=== PATIENT | female | born 1990 | race Caucasian/White ===

== ENCOUNTER → 2019-11-17 | Day surgery (SDC) | payer OTHER ==
[~2019-11-17] MED LIST: FENTANYL CITRATE/PF 100MCG/2 ML INJ ONE; KETAMINE HCL INJ 50 MG/ML 10 ML VIAL ONE; MIDAZOLAM HCL 2 MG/2 ML VIAL ONE; PANTOPRAZOLE 40 MG 10ML VIAL ONE; PROBIOTIC & AC1 EACH; PROPOFOL IV EMULSION 10 MG/ML 50 ML VIAL ONE
--- OUTSIDE RECORDS SUMMARY | 2019-11-17 09:30 | XMS REPORT | Summary of Care ---
Author Author [facility] - Health Organization [facility] - Health Address Unknown Phone Unavailable Care Team Providers Care Human Resources Psychologist Name Role Phone Tete Major MSN PCP Reason for Visit * Reason Comments Other Encounter Details Care Team Description Date Type Department Tete Major, MSN [address] [place] [address] Family planning counseling (Primary Dx); Vaginal discharge; Exposure to STD 10/30/2019 Office Visit [facility] [address] [place] [address] Allergies No Known Allergiesdocumented as of this encounter (statuses as of 10/30/2019) Medications No known medicationsdocumented as of this encounter (statuses as of 10/30/2019) Active Problems No known active problemsdocumented as of this encounter (statuses as of 10/30/2019) Social History Date Tobacco Use Types Packs/Day Years Used Former Smoker Cigarettes 0.5 Smokeless Tobacco: Never Used Drinks/Week oz/Week Comments Alcohol Use 1-2 Cans of beer 1.0 - 2.0 socially Not Currently Sex Assigned at Date Recorded Not on file Industry Job Start Date Occupation Not on file Not on file Not on file Travel End Travel History Travel Start No recent travel history available. documented as of this encounter Last Filed Vital Signs Reading Time Taken Comments Vital Sign 100/60 10/30/2019 2:13 PM [employer] Blood Pressure 73 10/30/2019 2:13 PM [employer] Pulse 36.9 C (98.4 F) 10/30/2019 2:13 PM [employer] Temperature 20 10/30/2019 2:13 PM [employer] Respiratory Rate - - Oxygen Saturation - - Inhaled Oxygen Concentration 55.3 kg (122 lb) 10/30/2019 2:13 PM [employer] Weight 167.6 cm (5' 6") 10/30/2019 2:13 PM [employer] Height 19.69 10/30/2019 2:13 PM [employer] Body Mass Index documented in this encounter Patient Instructions * Patient Instructions* Tete Major, MSN - 10/30/2019 1:45 PM [employer] Preventing Vaginal Infection These steps can help you stay comfortable during treatment of a vaginal infectio n. They also help prevent vaginal infections in the future. Keeping a healthy balance Factors that change the normal balance in the vagina can lead to a vaginal infec tion. To help keep the balance normal, try these tips: Change out of wet bathing suits and damp exercise clothes as soon as possible . Yeast thrive in a warm, moist environment. Avoid wearing tight pants. Choose cotton underwear and pantyhose that have a cotton crotch. Cotton keeps you cooler and short goods drier than synthetics. Don't douche unless directed by your healthcare provider. Douching can destro y friendly bacteria and change the vagina's normal balance. Wipe from front to back after using the toilet. This prevents bacteria from s preading from the anus to the vulva. Wash the vulva with mild, unscented soap or with plain water. Wash your diaphragm, spermicide applicators, and sex toys with mild soap and water after use. Dry them thoroughly before putting them away. Change tampons often (every 2 hoursto 4 hours). Leaving a tampon in for too long may disrupt the balance of vaginal bacteria. Avoid vaginal sprays, scented toilet paper and soaps, and deodorant tampons o r pads, which can cause vaginal irritation Staying healthy overall Good overall health can help you resist infection. To be healthier: Help protect yourself from STIs (sexually transmitted infections) by using la angus condoms for intercourse. Ask your healthcare provider for more information a bout safer sex. Eat a variety of healthy foods. Exercise regularly. Get enough rest and sleep. Maintain a healthy weight. If you need to lose weight, ask your healthcare pr ovider for advice on how to start. [employer] last reviewed this educational content on 05/25/201719998691-0439 [employer]. [address] [place] [address], [place], [place] [address]. All rights reserved. This information is not intended as a substitute for pro fessional medical care. Always follow your healthcare professional's instruction s. 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 The patient's primary symptoms include vaginal discharge. Primary symptoms comment: f/u from BV and PID, dx in ER. This is a ne w problem. The current episode started 1 to 4 weeks ago. The problem occurs eliot y. The problem has been unchanged. The patient is experiencing no pain. She is n ot . She wears cotton underwear. Associated symptoms comments: Genital s welling. The vaginal discharge was white and yellow. Nothing aggravates the symp toms. She has tried antibiotics for the symptoms. The treatment provided mild re lief. It is possible (desires testing) that her partner has an STD. She uses abs tinence for contraception. Her menstrual history has been regular. Patient repor ts not sexually active. Pt denies human trafficking, current or past physical, sexual, or emotional abus e. Histories OB History Para Term AB Living 6 6 SAB TAB Ectopic Multiple Live Births 5 # Outcome Date GA Lbr Eron/2nd Weight Sex Delivery Anes PTL Lv 6 SAB 06/2018 8w0d 5 AB 09/24/07 8w0d 4 SAB 09/24/04 8w0d 3 SAB 2 SAB 1 SAB History reviewed. No pertinent past medical history. Family History Problem Relation Age of Onset No Significant Medical Problems Mother No Significant Medical Problems Father No Significant Medical Problems Sister Family Status Relation Name Status Mo Alive Fa Alive Sis Alive History reviewed. No pertinent surgical history. Social History Socioeconomic History Marital status: Single Spouse name: Not on file Number of children: Not on file Years of education: Not on file Highest education level: Not on file Occupational History Not on file Social Needs Financial resource strain: Not on file Food insecurity: Worry: Not on file Inability: Not on file Transportation needs: Medical: Not on file Non-medical: Not on file Tobacco Use Smoking status: Former Smoker Packs/day: 0.50 Types: Cigarettes Smokeless tobacco: Never Used Substance and Sexual Activity Alcohol use: Not Currently Alcohol/week: 1.0 - 2.0 standard drinks Types: 1 - 2 Cans of beer per week Comment: socially Drug use: Yes Frequency: 7.0 times per week Types: Marijuana Sexual activity: Not Currently Partners: Male control/protection: None Lifestyle Physical activity: Days per week: Not on file Minutes per session: Not on file Stress: Not on file Relationships Social connections: Talks on phone: Not on file Gets together: Not on file Attends alevism service: Not on file Active member of club or organization: Not on file Attends meetings of clubs or organizations: Not on file Relationship status: Not on file Intimate partner violence: Fear of current or ex partner: Not on file Emotionally abused: Not on file Physically abused: Not on file Forced sexual activity: Not on file Other Topics Concern Not on file Social History Narrative Denies physical, mental or sexual abuse. Social History Substance and Sexual Activity Sexual Activity Not Currently Partners: Male control/protection: None Labs Admission on 09/06/2019, Discharged on 09/06/2019 Component Date Value APPEARANCE 09/06/2019 Clear COLOR 09/06/2019 Straw* PH 09/06/2019 7.0 SP GRAVITY 09/06/2019 1.003 GLU U QUAL 09/06/2019 Normal BLOOD 09/06/2019 Negative KETONES 09/06/2019 Negative PROTEIN 09/06/2019 Negative UROBILIN 09/06/2019 Normal BILIRUBIN 09/06/2019 Negative NITRITE 09/06/2019 Negative LEUK EARNEST 09/06/2019 Negative RBC/HPF 09/06/2019 2 WBC/HPF 09/06/2019 1 BACTERIA 09/06/2019 Negative SQ EPITH 09/06/2019 4* POCT PREG 09/06/2019 NEGATIVE On board controls accept* 09/06/2019 PRESENT POCT PREG LOT # 09/06/2019 [id number] POCT PREG TEST DA* 09/06/201920192020-09-23 NA 09/06/2019 141 K 09/06/2019 3.6 CL 09/06/2019 99 CO2 TOTAL 09/06/2019 30 AGAP 09/06/2019 12 BUN 09/06/2019 5* GLUCOSE 09/06/2019 92 CREATININE 09/06/2019 0.77 CALCIUM 09/06/2019 9.5 eGFR Calculation (Non-Af* 09/06/2019 88.6 eGFR Calculation (Luci* 09/06/2019 107.4 TOTAL BILI 09/06/2019 0.3 BILI UNCON 09/06/2019 0.1 BILI CONJ 09/06/2019 0.0 T PROTEIN 09/06/2019 8.2 ALBUMIN 09/06/2019 5.1* ALK PHOS 09/06/2019 32* ALTv 09/06/2019 34 AST(SGOT) 09/06/2019 35 LIPASE 09/06/2019 52 WBC 09/06/2019 3.44* RBC 09/06/2019 4.61 HGB 09/06/2019 14.7 HCT 09/06/2019 44.6 MCV 09/06/2019 96.7* MCH 09/06/2019 31.9 MCHC 09/06/2019 33.0 RDW-SD 09/06/2019 46.6 RDW-CV 09/06/2019 13.0 PLT 09/06/2019 222 MPV 09/06/2019 10.1 NRBC/100 WBC 09/06/2019 0.0 NRBC x10^3 09/06/2019 <0.01 GRAN MAT (NEUT) % 09/06/2019 56.6 IMM GRAN % 09/06/2019 0.30 LYMPH % 09/06/2019 25.6 MONO % 09/06/2019 16.9 EOS % 09/06/2019 0.3 BASO % 09/06/2019 0.3 GRAN MAT x10^3(ANC) 09/06/2019 1.95 IMM GRAN x10^3 09/06/2019 <0.03 LYMPH x10^3 09/06/2019 0.88* MONO x10^3 09/06/2019 0.58 EOS x10^3 09/06/2019 <0.03* BASO x10^3 09/06/2019 <0.03 BANDS 09/06/2019 Increased* Office Visit on 05/21/2019 Component Date Value C. trachomatis Nucleic A* 05/21/2019 Negative N. gonorrhoeae Nucleic A* 05/21/2019 Negative Case Report 05/21/2019 Value:Gynecologic Cytology Case: [id number] Authorizing Provider: Tete Major MSN Collected: [id number] Ordering Location: [facility] Received: 9 1808 First Screen: Aleah Esquivel Specimen: Liquid Based Pap Preparation, CERVIX Clinical Information 05/21/2019 Value:no hx of abnormal pap Specimen Adequacy 05/21/2019 Satisfactory for Evaluation(Endocervical/Trans formation Zone Component Present) Interpretation 05/21/2019 Negative for intraepithelial lesion or malignancy LMP 05/21/2019 LMP (specify date in Comments) Educational Note 05/21/2019 Value:This result contains rich text formatting which cannot be displayed here. Admission on 03/24/2019, Discharged on 03/24/2019 Component Date Value PREG SERUM 03/24/2019 Negative NA 03/24/2019 138 K 03/24/2019 4.2 CL 03/24/2019 101 CO2 TOTAL 03/24/2019 26 AGAP 03/24/2019 11 BUN 03/24/2019 13 GLUCOSE 03/24/2019 109 CREATININE 03/24/2019 0.73 CALCIUM 03/24/2019 10.4 eGFR Calculation (Non-Af* 03/24/2019 94.3 eGFR Calculation (Luci* 03/24/2019 114.2 APPEARANCE 03/24/2019 Clear COLOR 03/24/2019 Straw* PH 03/24/2019 6.0 SP GRAVITY 03/24/2019 1.005 GLU U QUAL 03/24/2019 Normal BLOOD 03/24/2019 Negative KETONES 03/24/2019 5 mg/dL* PROTEIN 03/24/2019 Negative UROBILIN 03/24/2019 Normal BILIRUBIN 03/24/2019 Negative NITRITE 03/24/2019 Negative LEUK EARNEST 03/24/2019 Negative RBC/HPF 03/24/2019 1 WBC/HPF 03/24/2019 1 BACTERIA 03/24/2019 Few* SQ EPITH 03/24/2019 1 WBC 03/24/2019 9.73 RBC 03/24/2019 4.75 HGB 03/24/2019 15.4* HCT 03/24/2019 46.2* MCV 03/24/2019 97.3* MCH 03/24/2019 32.4 MCHC 03/24/2019 33.3 RDW-SD 03/24/2019 45.9 RDW-CV 03/24/2019 12.7 PLT 03/24/2019 291 MPV 03/24/2019 9.2* NRBC/100 WBC 03/24/2019 0.0 NRBC x10^3 03/24/2019 <0.01 GRAN MAT (NEUT) % 03/24/2019 74.7 IMM GRAN % 03/24/2019 0.40 LYMPH % 03/24/2019 19.2 MONO % 03/24/2019 5.2 EOS % 03/24/2019 0.2 BASO % 03/24/2019 0.3 GRAN MAT x10^3(ANC) 03/24/2019 7.26* IMM GRAN x10^3 03/24/2019 0.04 LYMPH x10^3 03/24/2019 1.87 MONO x10^3 03/24/2019 0.51 EOS x10^3 03/24/2019 <0.03* BASO x10^3 03/24/2019 0.03 Radiology No new radiology. Allergies Hemalatha has No Known Allergies. Medications Hemalatha currently has no medications in their medication list. Review of Systems Constitutional: Negative. HENT: Negative. Eyes: Negative. Respiratory: Negative. Breasts: Negative. Cardiovascular: Negative. Gastrointestinal: Negative. Genitourinary: Positive for vaginal discharge. Musculoskeletal: Negative. Skin: Negative. Neurological: Negative. Psychiatric/Behavioral: Negative. Endocrine: Endocrine negative BP 100/60 | Pulse 73 | Temp 36.9 C (98.4 F) | Resp 20 | Ht 5' 6" (1.676 m) | Wt 122 lb (55.3 kg) | LMP 10/05/2019 | BMI 19.69 kg/m Pregravid BMI: Could not be calculated Physical Exam Vitals reviewed. Constitutional: She is oriented to person, place, and time. She appears well-dev eloped and well-nourished. Abdominal: Abdomen is soft. No mass palpated. No tenderness present. There is no rigidity and no guarding. Neuro/Psychiatric: She has a normal mood and affect. She is oriented to person, place, and time. Skin: Skin normal. No lesion, no rash and no ulceration present. External genitalia: Normal external genitalia appropriate for age. Normal hair d istribution. No labial lesion. Vagina:Vaginal discharge found. Scant amount of white discharge noted. Culture obtained Cervix: Normal cervix. No lesion. No tenderness and no discharge present. Assessment/Plan Family planning counseling (primary encounter diagnosis) Comment: Abstaining Plan: RTC if BCM desired Vaginal discharge Comment: Reports sx Plan: [facility] ONLY - VAGINAL PATHOGENS BY DNA PROBE Exposure to STD Comment: Desires Plan: GC & CHLAMYDIA AMPLIFIED ASSAY, [facility] ONLY - SYPHILIS IGG/IGM, HIV 1/2 AG-AB WITH REFLEX Zika travel precautions and need for mosquito repellant discussed Discussed treatment options. Reviewed patient instructions and provided printed copy. This visit did not involve counseling and coordination that comprised more than 50% of the visit time. 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 Comp leted 2 courses of RX. Still has yellow and white discharge, no odor. Not sexua lly active. STRIAL COMMERCIAL GROUNDSKEEPER documented in this encounter Plan of Treatment Date/Time Name Type Priority Associated Diagnoses 10/30/2019 3:04 PM IND[employer]RIAL COMMERCIAL GROUNDSKEEPER [facility] ONLY - VAGINAL LAB Routine Vaginal discharge PATHOGENS BY DNA PROBE 10/30/2019 3:04 PM INDUSTRIAL COMMERCIAL GROUNDSKEEPER GC & CHLAMYDIA AMPLIFIED LAB Routine Exposure to STD ASSAY 10/30/2019 3:04 PM IND[employer]RIAL [employer]ERCIAL GROUNDSKEEPER [facility] ONLY - SYPHILIS LAB Routine Exposure to STD IGG/IGM 10/30/2019 3:04 PM IND[employer]AL COMMERCIAL GROUNDSKEEPER HIV 1/2 AG-AB WITH REFLEX LAB Routine Exposure to STD Order Schedule Name Type Priority Associated Diagnoses Expected: 10/30/2019, Expires: 10/30/2020 GC & CHLAMYDIA AMPLIFIED LAB Routine Exposure to STD ASSAY Expected: 10/30/2019, Expires: 10/30/2020 HIV 1/2 AG-AB WITH REFLEX LAB Routine Exposure to STD Health Maintenance Due Date Last Done Comments INFLUENZA VACCINE (#1) 2019 VARICELLA VACCINES (1 of 05/21/2020 Postponed from 1991 2 - 2-dose childhood (Insurance / Financial) series) DTaP,Tdap,and Td Vaccines 05/28/2020 Postponed from 2001 (1 - Tdap) (Refused) PAP SMEAR 05/21/2022 05/21/2019 PNEUMOCOCCAL 0-64 YEARS Aged Out No longer eligible based COMBINED SERIES on patient's age to complete this topic documented as of this encounter Results Not on filedocumented in this encounter Visit Diagnoses Diagnosis Family planning counseling - Primary Other general counseling and advice for contraceptive management Vaginal discharge Leukorrhea, not specified as infective Exposure to STD Contact with or exposure to venereal diseases documented in this encounter Insurance Type Payer Benefit Subscriber ID Effective Phone Address Plan / Dates Group Medicaid [employer] [place] [employer] [facility] xxxxxxxxx 2019-P [phone] [id number] [place] [address] Guarantor Name Account Relation to Date of Phone Billing Address Type Patient Hemalatha Garcia [facility] Self 1990 [address] (Home) [place] [address] documented as of this encounter
--- OUTSIDE RECORDS SUMMARY | 2019-11-17 09:30 | XMS REPORT | Summary of Care ---
Author Author [facility] - Health Organization [facility] - Health Address Unknown Phone Unavailable Care Team Providers Care Time Clock Repairer Name Role Phone Tete Major MSN PCP Encounter Details Care Team Description Date Type Department Doctor Unassigned, [place] [address] [place] [address] 10/30/2019 Orders Only [facility] [address] [place] [address] Allergies No Known Allergiesdocumented as of this [...] of this encounter Last Filed Vital Signs Not on filedocumented in this encounter Plan of Treatment Health Maintenance Due Date Last Done Comments [...] this topic documented as of this encounter Procedures Comments Procedure Name Priority Date/Time Associated Diagnosis [id number] CONSENT Routine 10/30/2019 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
--- OUTSIDE RECORDS SUMMARY | 2019-11-17 09:30 | XMS REPORT | Summary of Care ---
Author Author [facility] - Health Organization [facility] - Health Address Unknown Phone Unavailable Care Team Providers Care Construction Crew Member Name Role Phone Sabrina Arauz PCP Reason for Visit * Reason Comments ANNUAL EXAM Encounter Details Care Team Description Date Type Department Tete Major, MSN [address] [place] [address] Family planning counseling (Primary Dx); Well woman exam with routine gynecological exam; Screening examination for venereal disease; Abdominal pain, generalized; Dysmenorrhea; Menorrhagia with regular cycle 05/21/2019 Office Visit [facility] [address] [place] [address] Allergies No Known Allergiesdocumented as of this encounter (statuses as of 05/28/2019) Medications End Date Status Medication Sig Dispensed Refills Start Date 05/21/2019 Discontinued ketorolac 10 mg tablet Take 1 tablet 20 tablet 0 by mouth 7 every 6 (six) hours as needed for Pain (scale 4-6) or Pain (scale 7-10). 05/21/2019 Discontinued traMADOL 50 mg tablet Take 1 tablet 15 tablet 0 by mouth 7 every 6 (six) hours as needed for Pain (scale 7-10). 05/21/2019 Discontinued ondansetron 8 mg Take 1 tablet 15 tablet 0 tabletIndications: Nausea by mouth 9 every 8 (eight) hours as needed for Nausea and Vomiting (N/V). documented as of this encounter (statuses as of 05/28/2019) Active Problems No known active problemsdocumented as of this encounter (statuses as of 05/28/2019) Social History Date Tobacco Use Types Packs/Day Years Used Former Smoker Cigarettes 0.5 Smokeless Tobacco: Never Used Tobacco Cessation: Counseling Given: Yes Drinks/Week oz/Week Comments Alcohol Use 1-2 Cans of beer 0.6 - 1.2 socially Not Currently Sex Assigned at Date Recorded Not on file Industry Job Start Date Occupation Not on file Not on file Not on file Travel End Travel History Travel Start No recent travel history available. documented as of this encounter Last Filed Vital Signs Reading Time Taken Comments Vital Sign 119/79 05/21/2019 2:50 PM CDT Blood Pressure 84 05/21/2019 2:50 PM CDT Pulse 36.8 C (98.2 F) 05/21/2019 2:50 PM CDT Temperature 18 05/21/2019 2:50 PM CDT Respiratory Rate - - Oxygen Saturation - - Inhaled Oxygen Concentration 55.3 kg (122 lb) 05/21/2019 2:50 PM CDT Weight 167.6 cm (5' 6") 05/21/2019 2:50 PM CDT Height 19.69 05/21/2019 2:50 PM CDT Body Mass Index documented in this encounter Patient Instructions * Patient Instructions* Haleigh Torres, FLORA - 05/21/2019 2:00 PM CDT Clinical Breast Exam Many health organizations recommend a yearly clinical breast exam. This exam may be done by a general inspector, family healthcare provider, nurse practitioner, nurse c wpf developer, or specially trained nurse. Yearly breast exams help tomake suret hat breast conditions are found early. Your healthcare providers role A healthcare professional knows the tests and follow-up care needed if a problem is found. Your clinical exam is also a great time to ask questions about breast self-exams. You can find out if youre checking your breasts in the best way. Or you may want to ask how , breast implants, or breast reduction surg viri affect the way you should check your breasts. Diagnostic tests If a clinical exam reveals a breast change, you may have other tests to find out more. These tests may include: Mammography. A low-dose X-ray of your breast tissue. Ultrasound. An imaging test that uses sound waves to create images of your br east. Biopsy. A small amount of breast tissue is removed by needle or by a cut (inc ision). The tissue is then checked under a microscope. Guidelines for having clinical breast exams The [place] [employer] recommends that starting at age 29, you should have a clinical breast exam every 1 to 3 years. After age 40, have a clinical breast exam each year. If youre at higher risk for breast cancer, you may need exams more often. Risk factors for breast cancer may incl ude: Being over 50 or postmenopausal Having a family history of breast cancer Having the BRCA1 or BRCA2 gene mutation or certain other gene mutations Having more menstrual periods due to starting menstruation early(before age 12) or having a late menopause (after age 55) Having no pregnancies Having a first after age 30 Being obese Having a history of radiation treatment to your chest area Exposure to JESSI during your mother's Not being active Drinking too much alcohol Having dense breast tissue Taking hormone therapy after menopause Other health organizations have different recommendations. Talk with your health care provider about what is best for you. Date Last Reviewed: 04/24/201719998541-3423 [employer] [place] [address] 7. All rights reserved. This information is not intended as a substitute for pro fessional medical care. Always follow your healthcare professional's instruction s. Breast Health: Breast Self-Awareness What is breast self-awareness? Breast self-awareness is knowing how your breasts normally look and feel. Your b reasts change as you go through different stages of your life. So its importa nt to learn what is normal for your breasts. Breast self-awareness helps you not ice any changes in your breasts right away. Report any changes to your healthcar e provider. Why is breast self-awareness important? Many experts now say that women should focus on breast self-awareness instead of doing a breast self-examination (BSE). These experts include the [place] [employer], the U.S. Preventive Services Task Force, and the [place] [employer]. Some experts even advise not teaching women to do a BSE. Thats because research hasnt shown a clear benefit to doing BSE s. Breast self-awareness is different than a BSE. Breast self-awareness isnt abo ut following a certain method and schedule. Its about knowing what's normal f or your breasts. That way you can notice even small changes right away. If you s ee any changes, report them to your healthcare provider. Changes to look for Call your healthcare provider if you find any changes in your breasts that neeta rn you. These changes may include: A lump Nipple discharge other than breastmilk, especially a bloody discharge Swelling A change in size or shape Skin irritation, such as redness, thickening, or dimpling of the skin Swollen lymph nodes in the armpit Nipple problems, such as pain or redness If you find a lump Contact your provider if you find lumpiness in one breast, feel something differ ent in the tissue, or feel a definite lump. Sometimes lumpiness may be due to me nstrual changes. But there may be reason for concern. Your provider may want to see you right away if you have: Nipple discharge that is bloody Skin changes on your breast, such as dimpling or puckering Its normal to be upset if you find a lump. But its important to contact yo ur provider right away. Remember that most breast lumps are benign. This means t hey are not cancer. Date Last Reviewed: 04/24/201719993296-0459 [employer]. [address] [place] [address] 7. All rights reserved. This information is not intended as a substitute for pro fessional medical care. Always follow your healthcare professional's instruction s. 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 Primary symptoms comment: abdominal pain. This is a recurrent problem. The current episode started more than 1 month ago. The problem occurs daily. The problem has been gradually worsening. The pain is severe. The problem affects both sides. She is not . She wears cotton un derwear. Associated symptoms include abdominal pain and cramps. She has tried an tibiotics for the symptoms. No, her partner does not have an STD. Her menstrual history has been regular. Her past medical history is significant for menorrhagi a. (Dysmenorrhea) Patient reports sexually active. Has been seen at multiple ERs. States she believes she might be even t carlos a all her test have been negative. States she's "afraid something is really wrong with me". Pt denies human trafficking, current or past [...] Sexual Activity Alcohol use: Not Currently Alcohol/week: 0.6 - 1.2 oz Types: 1 - 2 Cans of beer per week Comment: socially Drug use: Yes Frequency: 7.0 times per week Types: Marijuana Sexual activity: Not Currently Partners: Male control/protection: None Lifestyle Physical activity: Days per week: Not on file Minutes per session: Not on file Stress: Not on file Relationships Social connections: Talks on phone: Not on file Gets together: Not on file Attends yazidism service: Not on file Active member of [...] Partners: Male control/protection: None Labs Admission on 03/24/2019, Discharged on 03/24/2019 Component [...] Respiratory: Negative. Breasts: Negative. Cardiovascular: Negative. Gastrointestinal: Positive for abdominal pain. Genitourinary: Positive for menorrhagia. Musculoskeletal: Negative. Skin: Negative. Neurological: Negative. Psychiatric/Behavioral: Negative. Endocrine: Endocrine negative BP 119/79 | Pulse 84 | Temp 36.8 C (98.2 F) (Oral) | Resp 18 | Ht 5' 6" (1.676 m) | Wt 122 lb (55.3 kg) | LMP (LMP Unknown) | BMI 19.69 kg/m Pregravid BMI: Could [...] lesion, no rash and no ulceration present. Assessment/Plan Family planning counseling (primary encounter diagnosis) Comment: Declined BCM Plan: RTC if BCM desired Well woman exam with routine gynecological exam Comment: WWE Plan: PAP Smear-Liquid Based, GC & CHLAMYDIA AMPLIFIED ASSAY, LAB ONLY PAP SMEAR-LIQUID BASED, CANCELED: HIV 1/2 AG-AB WITH REFLEX, CANCELED: GALV ONLY - SYPHILIS IGG/IGM, CANCELED: CBC WITH DIFF, CANCELED: RUBELLA SCREEN IGG, CANCELED: GLYCOSYLATED HEMOGLOBIN (A1C), CANCELED: CBC WITH DIFFERENTIAL RTC in 1 yr and PRN Screening examination for venereal disease Comment: Declined any lab work Plan: GC & CHLAMYDIA AMPLIFIED ASSAY, CANCELED: HIV 1/2 AG-AB WITH REFLEX, CANCELED: GALV ONLY - SYPHILIS IGG/IGM Abdominal pain, generalized Comment: Reports sx Plan: Tylenol 1-2 tabs by mouth ever 4 hours when necessary. F/U with PCP or GI . Dysmenorrhea Comment: See hx Plan: Ibuprofen 600 mg po q 6 hrs prn pain Menorrhagia with regular cycle Comment: See hx Plan: Ibuprofen 600 mg po q 6 hrs prn pain Discussed treatment options. Medications as ordered. Reviewed patient instructions and provided printed copy. This visit did not involve counseling and coordination that comprised more than 50% of the visit time. Tete Major, RNC, WHNP * Haleigh Torres LVN - 05/21/2019 2:00 PM CDT Patient states that she is in clinic for a WWE. Reports last pap 2 + years and was negative Reports that she is feeling pain and pressure in the vaginal area. Reports that she is feeling things move in her stomach. Patient states " I belie ve I am . " States this has been going on for 3 months and states that she only spots every month. Reports that she recently took Flagyl until yesterday. Reports burning after urination. Reports that she is feeling something beating in LL abdomen and UP abdomen. Reports vomiting somedays Reports that she was given doxycycline but gave her horrible stomach pain and wa s afraid that she was going to loose her children so she stopped it. C DT documented in this encounter Plan of Treatment Date/Time Name Type Priority Associated Diagnoses 05/21/2019 4:09 PM CDT LAB ONLY PAP SMEAR-LIQUID LAB Routine Well woman exam with BASED routine gynecological exam Health Maintenance Due Date Last Done Comments PAP SMEAR 2011 INFLUENZA VACCINE (#1) 2019 Postponed from 05/25/2019 (Parent Refused) VARICELLA VACCINES (1 of 05/21/2020 Postponed from 2003 2 - 13+ 2-dose series) (Insurance / Financial) DTaP,Tdap,and Td Vaccines 05/28/2020 Postponed from 2009 (1 - Tdap) (Patient Refused) PNEUMOCOCCAL 0-64 YEARS Aged Out No longer eligible based COMBINED SERIES on patient's age to complete this topic documented as of this encounter Procedures Comments Procedure Name Priority Date/Time Associated Diagnosis PAP SMEAR-LIQUID BASED-CP Routine 05/21/2019 Well woman exam with 4:09 PM CDT routine gynecological exam GC & CHLAMYDIA AMPLIFIED Routine 05/21/2019 Screening examination for ASSAY 4:09 PM CDT venereal disease Well woman exam with routine gynecological exam documented in this encounter Results * GC & CHLAMYDIA AMPLIFIED ASSAY (05/21/2019 4:09 PM CDT) C. trachomatis NEGATIVE Negative [facility] [employer] N. gonorrhoeae NEGATIVE Negative [facility] [employer] Specimen Swab - CERVIX Performing Organization Address City/[facility]/Zipcode Phone Number [facility] CLIA: [id number], [address] [place], [place] [id number] [employer] [facility] * PAP Smear-Liquid Based (05/21/2019 4:09 PM CDT) Specimen Swab - CERVIX Performing Organization Address City/[facility] CLIA: [id number], [address] [place], [place] [id number] [facility] documented in this encounter Visit Diagnoses Diagnosis Family planning counseling - Primary Other general counseling and advice for contraceptive management Well woman exam with routine gynecological exam Routine gynecological examination Screening examination for venereal disease Abdominal pain, generalized Dysmenorrhea Menorrhagia with regular cycle Excessive or frequent menstruation documented in this encounter Insurance Type Payer Benefit Subscriber ID Effective Phone Address Plan / Dates Group Medicaid [facility] [place] [facility] xxxxxxxxx 2019-P [phone] [id number] [place] [address] documented as of this encounter
--- OUTSIDE RECORDS SUMMARY | 2019-11-17 09:30 | XMS REPORT | Summary of Care ---
Author Author [facility] - Health Organization [facility] - Health Address Unknown Phone Unavailable Care Team Providers Care Band Tacker Name Role Phone Pcp, Patient Does Not Have A PCP Reason for Visit * Reason Comments Assessment Encounter Details Care Team Description Date Type Department Sabrina Arauz [address] [place] [address] [address] Assessment 05/01/2019 Telephone [facility] [place] [id number] [place] [address] Allergies No Known Allergiesdocumented as of this encounter (statuses as of 05/01/2019) Medications End Date Status Medication Sig Dispensed Refills Start Date Active ketorolac 10 mg tablet Take 1 tablet 20 tablet 0 by mouth 7 every 6 (six) hours as needed for Pain (scale 4-6) or Pain (scale 7-10). Active traMADOL 50 mg tablet Take 1 tablet 15 tablet 0 by mouth 7 every 6 (six) hours as needed for Pain (scale 7-10). Active ondansetron 8 mg Take 1 tablet 15 tablet 0 tabletIndications: Nausea by mouth 9 every 8 (eight) hours as needed for Nausea and Vomiting (N/V). documented as of this encounter (statuses as of 05/01/2019) Active Problems No known active problemsdocumented as of this encounter (statuses as of 05/01/2019) Social History Date Tobacco Use Types Packs/Day Years Used Never Assessed Sex Assigned at Date Recorded Not on file Industry Job Start Date Occupation Not on file Not on file Not on file Travel End Travel History Travel Start No recent travel history available. documented as of this encounter Last Filed Vital Signs Not on filedocumented in this encounter Plan of Treatment Health Maintenance Due Date Last Done Comments VARICELLA VACCINES (1 of 2003 2 - 13+ 2-dose series) DTaP,Tdap,and Td Vaccines 2009 (1 - Tdap) PAP SMEAR 2011 INFLUENZA VACCINE 05/25/2019 PNEUMOCOCCAL 0-64 YEARS Aged Out No longer eligible based COMBINED SERIES on patient's age to complete this topic documented as of this encounter Results Not on filedocumented in this encounter Insurance Type Payer Benefit Subscriber ID Effective Phone Address Plan / Dates Group Medicaid [facility] [place] [facility] xxxxxxxxx 2019-P [phone] [id number] [place] [address] documented as of this encounter
--- OUTSIDE RECORDS SUMMARY | 2019-11-17 09:30 | XMS REPORT | Summary of Care ---
Author Author [facility] - Health Organization [facility] - Health Address Unknown Phone Unavailable Care Team Providers Care Telephone Assembler Name Role Phone Sabrina Arauz PCP Reason for Visit * Reason Comments Assessment Appointment Encounter Details Care Team Description Date Type Department Tete Major, MSN [address] [place] [address] Assessment; Appointment 05/29/2019 Telephone [facility] [address] [place] [address] Allergies No Known Allergiesdocumented as of this encounter (statuses as of 05/30/2019) Medications No known medicationsdocumented as of this encounter (statuses as of 05/30/2019) Active Problems No known active problemsdocumented as of this encounter (statuses as of 05/30/2019) Social History Date Tobacco Use Types Packs/Day [...] filedocumented in this encounter Plan of Treatment Care Team Description Date Type Specialty [facility] [address] [place] [address] 06/02/2019 Office Visit [facility] Health Maintenance Due Date Last Done Comments PAP SMEAR 2011 INFLUENZA VACCINE (#1) 2019 VARICELLA VACCINES (1 [...] / Dates Group Medicaid [employer] [place] [id number] xxxxxxxxx 2019-P [phone] [id number] [place] [address] documented as of this encounter
--- OUTSIDE RECORDS SUMMARY | 2019-11-17 09:30 | XMS REPORT ---
Author Author [facility] Address Unknown Phone Unavailable Care Team Providers Care Neck Band Operator Name Role Phone Unavailable Unavailable Payers Payer Name Policy Type Policy Number Effective Date Expiration Date Problems This patient has no known problems. Allergies, Adverse Reactions, Alerts Allergy Name Allergy Type Status Severity Reaction(s) Onset Date Inactive Date Treating Clinician Comments No Known Allergies DA Active U 2019-10-04 00:00:00 No Known Allergies DA Active U 2019-09-15 00:00:00 No Known Allergies DA Active U 2018-07-21 00:00:00 No Known Allergies DA Active U 2014-09-29 00:00:00 Medications This patient has no known medications. 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 INDICATION: Lower abdominal pain. History of bacterial vaginosis. Reported negative test. COMPARISON: Pelvic ultrasound from earlier today and abdomen CT from 03/25/2019. TECHNIQUE: Helical imaging was performed diaphragm through the symphysis with axial and coronal reformations obtained. CT imaging performed at this location utilizes radiation dose optimization techniques which include one or more of the following: -Automated exposure control -Adjustment of the mA and/or kV according to patient size -Use of iterative reconstruction technique IV CONTRAST: 100 mL Isovue-300. GI CONTRAST: 500 mL of Omnipaque 240. WWY=973.12 mGy-cm FINDINGS: LOWER CHEST: The lung bases are clear. SOLID ORGANS: Homogeneous liver density with indeterminate 7 x 6 mm hypodensity in the right liver lobe involving liver segment 8 (series 2, image 30. This is versus 9 x 11 mm in the previous study. No cirrhosis or enhancing lesion. Patent splenoportal circulation. The gallbladder, spleen, pancreas, adrenal glands and kidneys are unremarkable. BOWEL: Nonobstructive bowel gas pattern without pneumatosis or portal venous air. No signs of diverticulitis. Nonopacified, noninflamed appendix. Normal caliber small bowel. PERITONEUM: Trace free pelvic fluid, reactive or physiologic. No pneumoperitoneum. No adenopathy or peritoneal implants. RETROPERITONEUM: No adenopathy. The aorta is unremarkable. PELVIS: No pelvic adenopathy or mass. Enhancing 14 mm right ovarian corpus luteum. Unremarkable bladder. Mild edema of the deep pelvic fat is identified probably correlating to the patient's reported history. No adnexal masses. Trace free pelvic fluid. No inguinal hernia or adenopathy. MUSCULOSKELETAL: The visualized skeleton is unremarkable. 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 Mild deep pelvic fat edema with trace free pelvic fluid, reactive or physiologic. No organized collection. 2. Right ovarian corpus luteum. No adnexal masses. 3. Otherwise no acute CT explanation for the patient's symptoms. 4. Less conspicuous faint right liver hypodensity versus March 2019, incompletely characterized. Consider small hemangioma. The [employer] [employer] (ACR) consensus guidelines for asymptomatic patients age 18 and older recommend no further follow-up imaging for: Liver lesions less than or equal to 0.5 cm. Cystic renal lesion less than 1 cm. Adrenal lesions less than or equal to 1 cm. SL: ER-H at 1617 Reported and signed by: Garfield Hamilton M.D. CC: Sondra Beaver Technologist:Dona Rosas, RT(R)(CT) CTDI: DLP: Trnscb Date/Time: 10/04/2019 (161) [email or web address] Orig Print D/T: S: 10/04/2019 (7033) PAGE 2 Signed Report - US TRANSVAGINAL NON OB 2019-10-04 15:44:00 Name: HEMALATHA BARTH [facility] : 1990 Age/S: 29 / F [address] [place] [address] Unit #: [id number] Loc: [place] [address] Phys: Sondra Beaver Acct: [id number] Dis Date: Status: REG ER PHONE #: [phone] Exam Date: 10/04/2019 1545 FAX #: [phone] Reason: see US Pelvic Non OB Complete EXAMS: CPT CODE: [id number] [place] [address] - US PELVIS COMPLETE, - DUP AB/PEL/SC/LTD, - US TRANSVAGINAL NON OB, 10/04/2019 2:15 PM HISTORY: pelvic pain; being tx for BV COMPARISON: None FINDINGS: Transabdominal sonography was performed the pelvis. The uterus measures 7.5 x 3.9 x 5.2 cm. Transvaginal sonography performed for further assessment. Uterus appears unremarkable. Endometrium measures 5 mm. The left ovary is not visualized due to bowel gas. The right ovary has a sim ple appearing 1 cm cyst. Vascular flow identified in the right ovary. Small amount of free pelvic fluid. IMPRESSION: 1. Small simple appearing right ovarian cyst. Small amount of free pelvic fluid which may be physiologic. Location: CN-H at 1544 Reported and signed by: Fermín Clarke M.D. CC: Sondra Beaver Technologist: Susannah Krishnamurthy RDMS(AB) Trnscb Date/Time: 10/04/2019 (1543) [email or web address] Orig Print D/T: S: 10/04/2019 (1544) Probe: [id number] PAGE 1 Signed Report - DUP AB/PEL/SC/LTD 2019-10-04 15:44:00 Name: HEMALATHA BARTH [facility] : 1990 Age/S: 29 / F [address] [place] [address] Blvd Unit #: [id number] Loc: [place] [address] Phys: Sondra Beaver Acct: [id number] Dis Date: Status: REG ER PHONE #: [phone] Exam Date: 10/04/2019 1540 FAX #: [phone] Reason: see US Pelvic Non OB Complete EXAMS: CPT CODE: [id number] DUP AB/PEL/SC/LTD 63267 - US PELVIS COMPLETE, - DUP AB/PEL/SC/LTD, - US TRANSVAGINAL NON OB, 10/04/2019 2:15 PM HISTORY: pelvic pain; being tx for BV COMPARISON: None FINDINGS: Transabdominal sonography was performed the pelvis. The uterus measures 7.5 x 3.9 x 5.2 cm. Transvaginal sonography performed for further assessment. Uterus appears unremarkable. Endometrium measures 5 mm. The left ovary is not visualized due to bowel gas. The right ovary has a sim ple appearing 1 cm cyst. Vascular flow identified in the right ovary. Small amount of free pelvic fluid. IMPRESSION: 1. Small simple appearing right ovarian cyst. Small amount of free pelvic fluid which may be physiologic. Location: CN-H at 1544 Reported and signed by: Fermín Clarke M.D. CC: Sondra Beaver Technologist: Susannah Krishnamurthy RDMS(AB) Trnscb Date/Time: 10/04/2019 (5494) [email or web address] Orig Print D/T: S: 10/04/2019 (3928) Probe: PAGE 1 Signed Report - US PELVIS COMPLETE 2019-10-04 15:44:00 Name: HEMALATHA BARTH [facility] : 1990 Age/S: 29 / F [address] [place], [place] [address]vd Unit #: [id number] Loc: [place] [address] Phys: Sondra Beaver Acct: [id number] Dis Date: Status: REG ER PHONE #: [phone] Exam Date: 10/04/20191544 FAX #: [phone] Reason: pelvic pain; being tx for BV EXAMS: CPT CODE: [id number] US PELVIS COMPLETE 70444 - US PELVIS COMPLETE, - DUP AB/PEL/SC/LTD, - US TRANSVAGINAL NON OB, 10/04/2019 2:15 PM HISTORY: pelvic pain; being tx for BV COMPARISON: None FINDINGS: Transabdominal sonography was performed the pelvis. The uterus measures 7.5 x 3.9 x 5.2 cm. Transvaginal sonography performed for further assessment. Uterus appears unremarkable. Endometrium measures 5 mm. The left ovary is not visualized due to bowel gas. The right ovary has a sim ple appearing 1 cm cyst. Vascular flow identified in the right ovary. Small amount of free pelvic fluid. IMPRESSION: 1. Small simple appearing right ovarian cyst. Small amount of free pelvic fluid which may be physiologic. Location: CN-H at 1544 Reported and signed by: Fermín Clarke M.D. CC: Sondra Beaver Technologist: Susannah Krishnamurthy RDMS(AB) Trnscb Date/Time: 10/04/2019 (2994) [email or web address] Orig Print D/T: S: 10/04/2019 (9558) Probe: PAGE 1 Signed Report HEPATIC FUNCTION PANEL 2019-10-04 14:53:00 TOTAL PROTEIN (test code=PROT) 7.6 g/dL 6.4-8.2 ALBUMIN (test code=ALB) 4.20 g/dL 3.4-5.0 BILIRUBIN TOTAL (test code=BILT) 0.5 MG/DL <1.5 BILIRUBIN DIRECT (test code=BILD) 0.10 MG/DL 0.0-0.30 BILIRUBIN INDIRECT (test code=BILIND) 0.40 MG/DL SGOT/AST (test code=AST) 16 IUnit/L 15-37 SGPT/ALT (test code=ALT) 21 IUnit/L 15-65 ALKALINE PHOSPHATASE TOTAL (test code=ALKP) 31 IUnit/L 20-125 [id number] 14:53:00* Test Item Value Reference Range Comments LIPASE (test code=LIP) 58 IUnit/L 73-393 HCG SERUM [id number] 14:53:00* Test Item Value Reference Range Comments HCG SERUM QUAL (test code=HCGQL) SERUM NEGATIVE NEGATIVE HEPATIC FUNCTION [id number] 14:40:00* Test Item Value Reference Range Comments TOTAL PROTEIN (test code=PROT) g/dL 6.4-8.2 ALBUMIN (test code=ALB) g/dL 3.4-5.0 BILIRUBIN TOTAL (test code=BILT) MG/DL <1.5 BILIRUBIN DIRECT (test code=BILD) MG/DL 0.0-0.30 SGOT/AST (test code=AST) IUnit/L 15-37 SGPT/ALT (test code=ALT) IUnit/L 15-65 ALKALINE PHOSPHATASE TOTAL (test code=ALKP) IUnit/L 20-125 [id number] 14:40:00* Test Item Value Reference Range Comments LIPASE (test code=LIP) IUnit/L 73-393 HCG SERUM [id number] 14:40:00* Test Item Value Reference Range Comments HCG SERUM QUAL (test code=HCGQL) SERUM NEGATIVE NEGATIVE UA RFLX MICR CULT IF [id number] 14:32:00* Test Item Value Reference Range Comments UA COLOR (test code=COLU) STRAW YEL/STRAW UA APPEARANCE (test code=APPU) CLEAR CLEAR UA GLUCOSE DIPSTICK (test code=DGLUU) NEGATIVE NEGATIVE UA BILIRUBIN DIPSTICK (test code=BILU) NEGATIVE NEGATIVE UA KETONE DIPSTICK (test code=KETU) NEGATIVE NEGATIVE UA SPECIFIC GRAVITY (test code=SGU) 1.002 1.005-1.030 UA BLOOD DIPSTICK (test code=LEANNA) NEGATIVE NEGATIVE UA PH DIPSTICK (test code=CRISTOPHER) 7.0 5.0-7.0 UA PROTEIN DIPSTICK (test code=PROU) NEGATIVE NEGATIVE UA UROBILINIOGEN DIPSTICK (test code=URO) 0.2 mg/dL 0.2-1.0 UA NITRITE DIPSTICK (test code=PORFIRIO) NEGATIVE NEGATIVE UA LEUKOCYTE ESTERASE DIPSTICK (test code=LEUU) NEGATIVE NEGATIVE UA WBC (test code=WBCU) 0-3 WBC/HPF 0-3 UA RBC (test code=RBCU) 0-3 RBC/HPF 0-3 UA WBC NO REFLEX (test code=WBCUCL) 0-3 WBC/HPF 0-3 UA BACTERIA (test code=BACU) TRACE /HPF NONE SEEN UA SQUAMOUS CELLS (test code=SQU) 0-5 /HPF NONE SEEN UA MUCUS (test code=MUCU) TRACE /LPF NONE SEEN Indication for culture: Dysuria/FrequencySpecimen Description: CLEAN CATCH CBC W/AUTO [id number] 14:31:00* Test Item Value Reference Range Comments WHITE BLOOD CELL (test code=WBC) 5.11 x10 3/uL 4.5-11.0 RED BLOOD CELL (test code=RBC) 4.14 x10 6/uL 3.54-5.02 HEMOGLOBIN (test code=HGB) 13.0 g/dL 11.0-15.0 HEMATOCRIT (test code=HCT) 37.9 % 33.0-45.0 MEAN CELL VOLUME (test code=MCV) 91.5 fL 81.0-99.0 MEAN CELL HGB (test code=MCH) 31.4 pg 27.0-33.0 MEAN CELL HGB CONCETRATION (test code=MCHC) 34.3 g/dL 33.0-37.0 RED CELL DISTRIBUTION WIDTH CV (test code=RDW) 13.0 % 11.5-14.5 RED CELL DISTRIBUTION WIDTH SD (test code=RDW-SD) 43.8 fL 37.0-54.0 PLATELET COUNT (test code=PLT) 244 x10 3/uL 150-400 MEAN PLATELET VOLUME (test code=MPV) 9.2 fL 7.0-9.0 NEUTROPHIL % (test code=NT%) 52.6 % 56.0-77.0 IMMATURE GRANULOCYTE % (test code=IG%) 0.2 % 0.0-2.0 LYMPHOCYTE % (test code=LY%) 35.8 % 14.0-32.0 MONOCYTE % (test code=MO%) 9.8 % 4.8-9.0 EOSINOPHIL % (test code=EO%) 1.2 % 0.3-3.7 BASOPHIL % (test code=BA%) 0.4 % 0.0-2.0 NUCLEATED RBC % (test code=NRBC%) 0.0 % 0-0 NEUTROPHIL # (test code=NT#) 2.69 x10 3/uL 2.0-7.6 IMMATURE GRANULOCYTE # (test code=IG#) 0.01 x10 3/uL 0.00-0.03 LYMPHOCYTE # (test code=LY#) 1.83 x10 3/uL 1.0-3.8 MONOCYTE # (test code=MO#) 0.50 x10 3/uL 0.1-0.8 EOSINOPHIL # (test code=EO#) 0.06 x10 3/uL 0.0-0.2 BASOPHIL # (test code=BA#) 0.02 x10 3/uL 0.0-0.2 NUCLEATED RBC # (test code=NRBC#) 0.00 x10 3/uL 0.0-0.1 MANUAL DIFF REQUIRED (test code=MDIFF) NO LACTIC ACID [id number] 14:29:00* Test Item Value Reference Range Comments LACTIC ACID POC (test code=LACTP) 0.9 MMOL/L 0.90-1.70 Performed by certified portable sawmill operator at [facility] CHEMISTRY 8 [id number] 14:29:00* Test Item Value Reference Range Comments ISTAT-SODIUM (test code=NAP) MMOL/L 134-147 ISTAT-POTASSIUM (test code=KP) MMOL/L 3.4-5.0 ISTAT-CHLORIDE (test code=CLP) MMOL/L 100-108 ISTAT CARBON DIOXIDE (test code=ISTAT-CO2) mmol/L 21-33 ISTAT CALCIUM IONIZED (test code=ISTAT-LANDRY) MG/DL 1.12-1.32 ISTAT-GLUCOSE (test code=GLUP) MG/DL 70-110 ISTAT-BUN (test code=BUNP) MG/DL 7-18 BEDSIDE CREATININE (test code=CREATBED) MG/DL 0.6-1.3 GLOMERULAR FILTRATION RATE POC (test code=GFRBED) 105 ML/MIN CHEMISTRY 8 [id number] 14:29:00* Test Item Value Reference Range Comments ISTAT-SODIUM (test code=NAP) 137 MMOL/L 134-147 ISTAT-POTASSIUM (test code=KP) 3.7 MMOL/L 3.4-5.0 ISTAT-CHLORIDE (test code=CLP) 101 MMOL/L 100-108 Performed by certified portable sawmill operator at [facility] ISTAT CARBON DIOXIDE (test code=ISTAT-CO2) 25.0 mmol/L 21-33 ISTAT CALCIUM IONIZED (test code=ISTAT-LANDRY) 1.06 MG/DL 1.12-1.32 ISTAT-GLUCOSE (test code=GLUP) 103 MG/DL 70-110 ISTAT-BUN (test code=BUNP) 4 MG/DL 7-18 BEDSIDE CREATININE (test code=CREATBED) 0.7 MG/DL 0.6-1.3 GLOMERULAR FILTRATION RATE POC (test code=GFRBED) 105 ML/MIN DRUGS OF ABUSE SCREEN [id number] 14:58:00* Test Item Value Reference Range Comments URN COCAINE (test code=COCAURN) NEGATIVE NEGATIVE URN CANNABINOIDS (test code=CANNABURN) POSITIVE NEGATIVE URN AMPHETAMINE (test code=AMPHETURN) NEGATIVE NEGATIVE URN BARBITURATE (test code=BARBITURN) NEGATIVE NEGATIVE URN BENZODIAZEPINE (test code=BENZOURN) NEGATIVE NEGATIVE Cut-off value:200 ng/mL URN OPIATES (test code=OPIATURN) NEGATIVE NEGATIVE Cut-off value:2000 ng/mL URN PHENCYCLIDINE (PCP) (test code=PHENCURN) NEGATIVE NEGATIVE Cutoffs:Barbiturates 200 ng/mLBenzodiazepines 200 ng/mLTHC Cannabinoids 50 ng/mLOpiates(Morphine) 2000 ng/mLAmphetamine 1000 ng/mLCocaine 300 ng/mLPCP phencyclidine 25 ng/mL Unconfirmed screening results shouldnot be used for non-medical purposes. DRUGS OF ABUSE SCREEN [id number] 14:47:00* Test Item Value Reference Range Comments URN COCAINE (test code=COCAURN) NEGATIVE NEGATIVE URN CANNABINOIDS (test code=CANNABURN) NEGATIVE URN AMPHETAMINE (test code=AMPHETURN) NEGATIVE NEGATIVE URN BARBITURATE (test code=BARBITURN) NEGATIVE NEGATIVE URN BENZODIAZEPINE (test code=BENZOURN) NEGATIVE NEGATIVE Cut-off value:200 ng/mL URN OPIATES (test code=OPIATURN) NEGATIVE NEGATIVE Cut-off value:2000 ng/mL URN PHENCYCLIDINE (PCP) (test code=PHENCURN) NEGATIVE NEGATIVE Cutoffs:Barbiturates 200 ng/mLBenzodiazepines 200 ng/mLTHC Cannabinoids 50 ng/mLOpiates(Morphine) 2000 ng/mLAmphetamine 1000 ng/mLCocaine 300 ng/mLPCP phencyclidine 25 ng/mL Unconfirmed screening results shouldnot be used for non-medical purposes. COMPREHENSIVE METABOLIC [id number] 14:46:00* Test Item Value Reference Range Comments SODIUM (test code=NA) 138 mEq/L 134-147 POTASSIUM (test code=K) 3.3 mEq/L 3.4-5.0 CHLORIDE (test code=CL) 102 mEq/L 100-108 CARBON DIOXIDE (test code=CO2) 31 mEq/L 21-33 ANION GAP (test code=GAP) 8 0-20 GLUCOSE (test code=GLU) 103 mg/dL 70-110 BLOOD UREA NITROGEN (test code=BUN) 9 mg/dL 7-18 GLOMERULAR FILTRATION RATE (test code=GFR) 74.0 110-120 Units of measure=ml/min/1.73 m2 CREATININE (test code=CREAT) 0.9 mg/dL 0.6-1.3 TOTAL PROTEIN (test code=PROT) 7.4 g/dL 6.4-8.2 ALBUMIN (test code=ALB) 4.30 g/dL 3.4-5.0 CALCIUM (test code=CA) 8.9 mg/dL 8.0-10.5 BILIRUBIN TOTAL (test code=BILT) 0.5 MG/DL <1.5 SGOT/AST (test code=AST) 10 IUnit/L 15-37 SGPT/ALT (test code=ALT) 16 IUnit/L 15-65 ALKALINE PHOSPHATASE TOTAL (test code=ALKP) 31 IUnit/L 20-125 [id number] 14:46:00* Test Item Value Reference Range Comments LIPASE (test code=LIP) 71 IUnit/L 73-393 COMPREHENSIVE METABOLIC [id number] 14:37:00* Test Item Value Reference Range Comments SODIUM (test code=NA) 138 mEq/L 134-147 POTASSIUM (test code=K) 3.3 mEq/L 3.4-5.0 CHLORIDE (test code=CL) 102 mEq/L 100-108 CARBON DIOXIDE (test code=CO2) 31 mEq/L 21-33 ANION GAP (test code=GAP) 8 0-20 GLUCOSE (test code=GLU) 103 mg/dL 70-110 BLOOD UREA NITROGEN (test code=BUN) 9 mg/dL 7-18 GLOMERULAR FILTRATION RATE (test code=GFR) 110-120 CREATININE (test code=CREAT) mg/dL 0.6-1.3 TOTAL PROTEIN (test code=PROT) g/dL 6.4-8.2 ALBUMIN (test code=ALB) g/dL 3.4-5.0 CALCIUM (test code=CA) 8.9 mg/dL 8.0-10.5 BILIRUBIN TOTAL (test code=BILT) MG/DL <1.5 SGOT/AST (test code=AST) IUnit/L 15-37 SGPT/ALT (test code=ALT) IUnit/L 15-65 ALKALINE PHOSPHATASE TOTAL (test code=ALKP) IUnit/L 20-125 [id number] 14:37:00* Test Item Value Reference Range Comments LIPASE (test code=LIP) 71 IUnit/L 73-393 UR HCG [id number] 14:25:00* Test Item Value Reference Range Comments UR HCG QUAL (test code=HCGQLU) NEGATIVE NEGATIVE URINALYSIS [id number] 14:25:00* Test Item Value Reference Range Comments UA COLOR (test code=COLU) YELLOW YEL/STRAW UA APPEARANCE (test code=APPU) SL CLOUDY CLEAR UA GLUCOSE DIPSTICK (test code=DGLUU) NEGATIVE NEGATIVE UA BILIRUBIN DIPSTICK (test code=BILU) NEGATIVE NEGATIVE UA KETONE DIPSTICK (test code=KETU) NEGATIVE NEGATIVE UA SPECIFIC GRAVITY (test code=SGU) 1.005 1.005-1.030 UA BLOOD DIPSTICK (test code=LEANNA) NEGATIVE NEGATIVE UA PH DIPSTICK (test code=CRISTOPHER) 8.0 5.0-7.0 UA PROTEIN DIPSTICK (test code=PROU) NEGATIVE NEGATIVE UA UROBILINIOGEN DIPSTICK (test code=URO) 0.2 mg/dL 0.2-1.0 UA NITRITE DIPSTICK (test code=PORFIRIO) NEGATIVE NEGATIVE UA LEUKOCYTE ESTERASE DIPSTICK (test code=LEUU) NEGATIVE NEGATIVE UA RBC (test code=RBCU) 0-3 RBC/HPF 0-3 UA WBC NO REFLEX (test code=WBCUCL) 0-3 WBC/HPF 0-3 UA BACTERIA (test code=BACU) TRACE /HPF NONE SEEN UA SQUAMOUS CELLS (test code=SQU) 0-5 /HPF NONE SEEN UA MUCUS (test code=MUCU) TRACE /LPF NONE SEEN CBC W/AUTO [id number] 14:22:00* Test Item Value Reference Range Comments WHITE BLOOD CELL (test code=WBC) 7.60 x10 3/uL 4.5-11.0 RED BLOOD CELL (test code=RBC) 4.13 x10 6/uL 3.54-5.02 HEMOGLOBIN (test code=HGB) 13.6 g/dL 11.0-15.0 HEMATOCRIT (test code=HCT) 40.6 % 33.0-45.0 MEAN CELL VOLUME (test code=MCV) 98.3 fL 81.0-99.0 MEAN CELL HGB (test code=MCH) 32.9 pg 27.0-33.0 MEAN CELL HGB CONCETRATION (test code=MCHC) 33.5 g/dL 33.0-37.0 RED CELL DISTRIBUTION WIDTH CV (test code=RDW) 13.5 % 11.5-14.5 RED CELL DISTRIBUTION WIDTH SD (test code=RDW-SD) 48.7 fL 37.0-54.0 PLATELET COUNT (test code=PLT) 253 x10 3/uL 150-400 MEAN PLATELET VOLUME (test code=MPV) 9.5 fL 7.0-9.0 NEUTROPHIL % (test code=NT%) 63.4 % 56.0-77.0 IMMATURE GRANULOCYTE % (test code=IG%) 0.3 % 0.0-2.0 LYMPHOCYTE % (test code=LY%) 28.0 % 14.0-32.0 MONOCYTE % (test code=MO%) 7.1 % 4.8-9.0 EOSINOPHIL % (test code=EO%) 0.5 % 0.3-3.7 BASOPHIL % (test code=BA%) 0.7 % 0.0-2.0 NUCLEATED RBC % (test code=NRBC%) 0.0 % 0-0 NEUTROPHIL # (test code=NT#) 4.82 x10 3/uL 2.0-7.6 IMMATURE GRANULOCYTE # (test code=IG#) 0.02 x10 3/uL 0.00-0.03 LYMPHOCYTE # (test code=LY#) 2.13 x10 3/uL 1.0-3.8 MONOCYTE # (test code=MO#) 0.54 x10 3/uL 0.1-0.8 EOSINOPHIL # (test code=EO#) 0.04 x10 3/uL 0.0-0.2 BASOPHIL # (test code=BA#) 0.05 x10 3/uL 0.0-0.2 NUCLEATED RBC # (test code=NRBC#) 0.00 x10 3/uL 0.0-0.1 MANUAL DIFF REQUIRED (test code=MDIFF) NO COMPREHENSIVE METABOLIC [id number] 05:14:00* Test Item Value Reference Range Comments SODIUM (test code=NA) 140 mEq/L 134-147 POTASSIUM (test code=K) 3.9 mEq/L 3.4-5.0 CHLORIDE (test code=CL) 105 mEq/L 100-108 CARBON DIOXIDE (test code=CO2) 27 mEq/L 21-33 ANION GAP (test code=GAP) 12 0-20 GLUCOSE (test code=GLU) 81 mg/dL 70-110 BLOOD UREA NITROGEN (test code=BUN) 6 mg/dL 7-18 GLOMERULAR FILTRATION RATE (test code=GFR) 84.8 110-120 Units of measure=ml/min/1.73 m2 CREATININE (test code=CREAT) 0.8 mg/dL 0.6-1.3 TOTAL PROTEIN (test code=PROT) 6.8 g/dL 6.4-8.2 ALBUMIN (test code=ALB) 3.80 g/dL 3.4-5.0 CALCIUM (test code=CA) 8.7 mg/dL 8.0-10.5 BILIRUBIN TOTAL (test code=BILT) 0.20 mg/dL 0.0-1.0 SGOT/AST (test code=AST) 15 IUnit/L 15-37 SGPT/ALT (test code=ALT) 23 IUnit/L 15-65 ALKALINE PHOSPHATASE TOTAL (test code=ALKP) 35 IUnit/L 20-125 [id number] 05:14:00* Test Item Value Reference Range Comments LIPASE (test code=LIP) 142 IUnit/L 73-393 COMPREHENSIVE METABOLIC [id number] 05:12:00* Test Item Value Reference Range Comments SODIUM (test code=NA) 140 mEq/L 134-147 POTASSIUM (test code=K) 3.9 mEq/L 3.4-5.0 CHLORIDE (test code=CL) 105 mEq/L 100-108 CARBON DIOXIDE (test code=CO2) 27 mEq/L 21-33 ANION GAP (test code=GAP) 12 0-20 GLUCOSE (test code=GLU) 81 mg/dL 70-110 BLOOD UREA NITROGEN (test code=BUN) 6 mg/dL 7-18 GLOMERULAR FILTRATION RATE (test code=GFR) 84.8 110-120 Units of measure=ml/min/1.73 m2 CREATININE (test code=CREAT) 0.8 mg/dL 0.6-1.3 TOTAL PROTEIN (test code=PROT) g/dL 6.4-8.2 ALBUMIN (test code=ALB) 3.80 g/dL 3.4-5.0 CALCIUM (test code=CA) 8.7 mg/dL 8.0-10.5 BILIRUBIN TOTAL (test code=BILT) mg/dL 0.0-1.0 SGOT/AST (test code=AST) 15 IUnit/L 15-37 SGPT/ALT (test code=ALT) 23 IUnit/L 15-65 ALKALINE PHOSPHATASE TOTAL (test code=ALKP) IUnit/L 20-125 [id number] 05:12:00* Test Item Value Reference Range Comments LIPASE (test code=LIP) 142 IUnit/L 73-393 CBC W/AUTO [id number] 04:50:00* Test Item Value Reference Range Comments WHITE BLOOD CELL (test code=WBC) 8.97 x10 3/uL 4.5-11.0 RED BLOOD CELL (test code=RBC) 4.21 x10 6/uL 3.54-5.02 HEMOGLOBIN (test code=HGB) 13.8 g/dL 11.0-15.0 HEMATOCRIT (test code=HCT) 40.5 % 33.0-45.0 MEAN CELL VOLUME (test code=MCV) 96.2 fL 81.0-99.0 MEAN CELL HGB (test code=MCH) 32.8 pg 27.0-33.0 MEAN CELL HGB CONCETRATION (test code=MCHC) 34.1 g/dL 33.0-37.0 RED CELL DISTRIBUTION WIDTH CV (test code=RDW) 12.5 % 11.5-14.5 RED CELL DISTRIBUTION WIDTH SD (test code=RDW-SD) 44.3 fL 37.0-54.0 PLATELET COUNT (test code=PLT) 264 x10 3/uL 150-400 MEAN PLATELET VOLUME (test code=MPV) 9.4 fL 7.0-9.0 NEUTROPHIL % (test code=NT%) 62.6 % 56.0-77.0 IMMATURE GRANULOCYTE % (test code=IG%) 0.3 % 0.0-2.0 LYMPHOCYTE % (test code=LY%) 28.5 % 14.0-32.0 MONOCYTE % (test code=MO%) 7.1 % 4.8-9.0 EOSINOPHIL % (test code=EO%) 1.1 % 0.3-3.7 BASOPHIL % (test code=BA%) 0.4 % 0.0-2.0 NUCLEATED RBC % (test code=NRBC%) 0.0 % 0-0 NEUTROPHIL # (test code=NT#) 5.60 x10 3/uL 2.0-7.6 IMMATURE GRANULOCYTE # (test code=IG#) 0.03 x10 3/uL 0.00-0.03 LYMPHOCYTE # (test code=LY#) 2.56 x10 3/uL 1.0-3.8 MONOCYTE # (test code=MO#) 0.64 x10 3/uL 0.1-0.8 EOSINOPHIL # (test code=EO#) 0.10 x10 3/uL 0.0-0.2 BASOPHIL # (test code=BA#) 0.04 x10 3/uL 0.0-0.2 NUCLEATED RBC # (test code=NRBC#) 0.00 x10 3/uL 0.0-0.1 MANUAL DIFF REQUIRED (test code=MDIFF) NO - CT ABD PELVIS [id number] 09:24:00 Name: HEMALATHA BARTH [facility] : 1990 Age/S: 29 / F [address] [place] [address] Unit #: [id number] Loc: [place] [address] Phys: Rashaun Grayson MD Acct: [id number] Dis Date: Status: REG ER PHONE #: [phone] Exam Date: 03/25/2019 0858 FAX #: [phone] Reason: diffuse lower abd discomfort, nausea/vomiting EXAMS: CPT CODE: [id number] CT ABD PELVIS W/CONT [id number] PROCEDURE: CT ABDOMEN AND PELVIS WITH CONTRAST INDICATION: diffuse lower abd discomfort, nausea/vomiting 29-year-old female COMPARISON: None. TECHNIQUE: Helical imaging was performed diaphragm through the symphysis with multiplanar reconstructions. IV CONTRAST: 100 mL Isovue-300. GI CONTRAST: None, declined by the patient. CT imaging performed at this location utilizes radiation dose optimization techniques which include one or more of the following: -Automated exposure control -Adjustment of the mA and/or kV according to patient size -Use of iterative reconstruction technique CT Radiation Dose DLP 118.29 mGy-cm FINDINGS: LOWER CHEST: The lung bases are clear. LIVER: 1.1 x 0.9 cm low- attenuation lesion segment 8 right lobe of liver, axial series 2 image 22 with indistinct margins, indeterminate by attenuation values and in completely characterized. The liver is otherwise normal. The portal venous system is patent. No biliary dilatation. GALLBLADDER: Unrem arkable. SPLEEN: Normal. PANCREAS: Normal. ADRENALS: Normal. KIDNEYS: Normal. BOWEL: The u nopacified stomach is unremarkable. Air-fluid levels within normal caliber small bowel. No pathologic dilatation or wall thickening. Liquid feces in the ascending and transverse colon. The left colon is predominantly contr acted containing scattered gas and fecal material. No pathologic wall thic kening. No mesenteric abnormality. APPENDIX: Normal. PAG E 1 Signed Report (CONTINUED) Name: [facility] [place] : 1989 Age/S: 29 / F [address] [place] [address] Blvd Unit #: [id number] Loc: [place] [address] Phys: Rashaun Grayson MD Acct: [id number] Dis Date: Status: REG ER PHONE #: [phone] Exam Date: 03/25/2019857 FAX #: [phone] Reason: diffuse lower abd discomfort, nausea/vomiting EXAMS: CPT CODE: [id number] CT ABD PELVIS W/CONT [id number] <Continued> PERITONEUM: No free intraperitoneal fluid or air. RETROPERITONEUM: No adenopathy. The aorta is normal. PELVIS: No pelvic mass. The urinary bladder is normal. MUSCULOSKELETAL: The skeleton is intact. IMPRESSION: 1. CT findings are suggestive of an enteritis with infectious and noninfectious etiologies possible. 2. Negative for appendicitis. 3. Incidental right lobe liver lesion incompletely characterized. As an incidental finding, recommend follow-up nonemergent MRI for further characterization. SL: [id number] at 0924 Reported and signed by: Awais Winston M.D. CC: Rashaun Grayson MD Technologist:RT Elver(R)(CT) CTDI: DLP: Trnscb Date/Time: 03/25/2019 (923) Erick Orig Print D/T: S: 03/25/2019 (926) PAGE 2 Signed Report COMPREHENSIVE METABOLIC [id number] 08:41:00* Test Item Value Reference Range Comments SODIUM (test code=NA) 138 mEq/L 134-147 POTASSIUM (test code=K) 3.3 mEq/L 3.4-5.0 CHLORIDE (test code=CL) 104 mEq/L 100-108 CARBON DIOXIDE (test code=CO2) 27 mEq/L 21-33 ANION GAP (test code=GAP) 10 0-20 GLUCOSE (test code=GLU) 95 mg/dL 70-110 BLOOD UREA NITROGEN (test code=BUN) 12 mg/dL 7-18 GLOMERULAR FILTRATION RATE (test code=GFR) 74.0 110-120 Units of measure=ml/min/1.73 m2 CREATININE (test code=CREAT) 0.9 mg/dL 0.6-1.3 TOTAL PROTEIN (test code=PROT) 8.8 g/dL 6.4-8.2 ALBUMIN (test code=ALB) 4.90 g/dL 3.4-5.0 CALCIUM (test code=CA) 9.4 mg/dL 8.0-10.5 BILIRUBIN TOTAL (test code=BILT) 0.90 mg/dL 0.0-1.0 SGOT/AST (test code=AST) 21 IUnit/L 15-37 SGPT/ALT (test code=ALT) 30 IUnit/L 15-65 ALKALINE PHOSPHATASE TOTAL (test code=ALKP) 39 IUnit/L 20-125 [id number] 08:41:00* Test Item Value Reference Range Comments LIPASE (test code=LIP) 97 IUnit/L 73-393 HCG SERUM [id number] 08:41:00* Test Item Value Reference Range Comments HCG SERUM QUAL (test code=HCGQL) SERUM NEGATIVE NEGATIVE COMPREHENSIVE METABOLIC [id number] 08:29:00* Test Item Value Reference Range Comments SODIUM (test code=NA) 138 mEq/L 134-147 POTASSIUM (test code=K) 3.3 mEq/L 3.4-5.0 CHLORIDE (test code=CL) 104 mEq/L 100-108 CARBON DIOXIDE (test code=CO2) 27 mEq/L 21-33 ANION GAP (test code=GAP) 10 0-20 GLUCOSE (test code=GLU) 95 mg/dL 70-110 BLOOD UREA NITROGEN (test code=BUN) 12 mg/dL 7-18 GLOMERULAR FILTRATION RATE (test code=GFR) 74.0 110-120 Units of measure=ml/min/1.73 m2 CREATININE (test code=CREAT) 0.9 mg/dL 0.6-1.3 TOTAL PROTEIN (test code=PROT) 8.8 g/dL 6.4-8.2 ALBUMIN (test code=ALB) 4.90 g/dL 3.4-5.0 CALCIUM (test code=CA) 9.4 mg/dL 8.0-10.5 BILIRUBIN TOTAL (test code=BILT) 0.90 mg/dL 0.0-1.0 SGOT/AST (test code=AST) 21 IUnit/L 15-37 SGPT/ALT (test code=ALT) 30 IUnit/L 15-65 ALKALINE PHOSPHATASE TOTAL (test code=ALKP) 39 IUnit/L 20-125 [id number] 08:29:00* Test Item Value Reference Range Comments LIPASE (test code=LIP) 97 IUnit/L 73-393 HCG SERUM [id number] 08:29:00* Test Item Value Reference Range Comments HCG SERUM QUAL (test code=HCGQL) NEGATIVE COMPREHENSIVE METABOLIC [id number] 08:26:00* Test Item Value Reference Range Comments SODIUM (test code=NA) 138 mEq/L 134-147 POTASSIUM (test code=K) 3.3 mEq/L 3.4-5.0 CHLORIDE (test code=CL) 104 mEq/L 100-108 CARBON DIOXIDE (test code=CO2) 27 mEq/L 21-33 ANION GAP (test code=GAP) 10 0-20 GLUCOSE (test code=GLU) 95 mg/dL 70-110 BLOOD UREA NITROGEN (test code=BUN) 12 mg/dL 7-18 GLOMERULAR FILTRATION RATE (test code=GFR) 74.0 110-120 Units of measure=ml/min/1.73 m2 CREATININE (test code=CREAT) 0.9 mg/dL 0.6-1.3 TOTAL PROTEIN (test code=PROT) g/dL 6.4-8.2 ALBUMIN (test code=ALB) 4.90 g/dL 3.4-5.0 CALCIUM (test code=CA) 9.4 mg/dL 8.0-10.5 BILIRUBIN TOTAL (test code=BILT) mg/dL 0.0-1.0 SGOT/AST (test code=AST) 21 IUnit/L 15-37 SGPT/ALT (test code=ALT) 30 IUnit/L 15-65 ALKALINE PHOSPHATASE TOTAL (test code=ALKP) IUnit/L 20-125 [id number] 08:26:00* Test Item Value Reference Range Comments LIPASE (test code=LIP) 97 IUnit/L 73-393 HCG SERUM [id number] 08:26:00* Test Item Value Reference Range Comments HCG SERUM QUAL (test code=HCGQL) NEGATIVE URINALYSIS [id number] 08:19:00* Test Item Value Reference Range Comments UA COLOR (test code=COLU) YELLOW YEL/STRAW UA APPEARANCE (test code=APPU) CLEAR CLEAR UA GLUCOSE DIPSTICK (test code=DGLUU) NEGATIVE NEGATIVE UA BILIRUBIN DIPSTICK (test code=BILU) NEGATIVE NEGATIVE UA KETONE DIPSTICK (test code=KETU) TRACE NEGATIVE UA SPECIFIC GRAVITY (test code=SGU) 1.019 1.005-1.030 UA BLOOD DIPSTICK (test code=LEANNA) NEGATIVE NEGATIVE UA PH DIPSTICK (test code=CRISTOPHER) 6.0 5.0-7.0 UA PROTEIN DIPSTICK (test code=PROU) NEGATIVE NEGATIVE UA UROBILINIOGEN DIPSTICK (test code=URO) 0.2 mg/dL 0.2-1.0 UA NITRITE DIPSTICK (test code=PORFIRIO) NEGATIVE NEGATIVE UA LEUKOCYTE ESTERASE DIPSTICK (test code=LEUU) NEGATIVE NEGATIVE UA WBC (test code=WBCU) 0-3 WBC/HPF 0-3 UA RBC (test code=RBCU) 4-10 RBC/HPF 0-3 UA BACTERIA (test code=BACU) NONE SEEN /HPF NONE SEEN UA SQUAMOUS CELLS (test code=SQU) 6-10 /HPF NONE SEEN UA MUCUS (test code=MUCU) TRACE /LPF NONE SEEN COMMENTS: Clean CatchCBC W/AUTO [id number] 08:16:00* Test Item Value Reference Range Comments WHITE BLOOD CELL (test code=WBC) 12.31 x10 3/uL 4.5-11.0 RED BLOOD CELL (test code=RBC) 5.00 x10 6/uL 3.54-5.02 HEMOGLOBIN (test code=HGB) 16.1 g/dL 11.0-15.0 HEMATOCRIT (test code=HCT) 47.6 % 33.0-45.0 MEAN CELL VOLUME (test code=MCV) 95.2 fL 81.0-99.0 MEAN CELL HGB (test code=MCH) 32.2 pg 27.0-33.0 MEAN CELL HGB CONCETRATION (test code=MCHC) 33.8 g/dL 33.0-37.0 RED CELL DISTRIBUTION WIDTH CV (test code=RDW) 12.6 % 11.5-14.5 RED CELL DISTRIBUTION WIDTH SD (test code=RDW-SD) 45.1 fL 37.0-54.0 PLATELET COUNT (test code=PLT) 299 x10 3/uL 150-400 MEAN PLATELET VOLUME (test code=MPV) 9.4 fL 7.0-9.0 NEUTROPHIL % (test code=NT%) 86.7 % 56.0-77.0 IMMATURE GRANULOCYTE % (test code=IG%) 0.7 % 0.0-2.0 LYMPHOCYTE % (test code=LY%) 6.0 % 14.0-32.0 MONOCYTE % (test code=MO%) 6.0 % 4.8-9.0 EOSINOPHIL % (test code=EO%) 0.4 % 0.3-3.7 BASOPHIL % (test code=BA%) 0.2 % 0.0-2.0 NUCLEATED RBC % (test code=NRBC%) 0.0 % 0-0 NEUTROPHIL # (test code=NT#) 10.67 x10 3/uL 2.0-7.6 IMMATURE GRANULOCYTE # (test code=IG#) 0.09 x10 3/uL 0.00-0.03 LYMPHOCYTE # (test code=LY#) 0.74 x10 3/uL 1.0-3.8 MONOCYTE # (test code=MO#) 0.74 x10 3/uL 0.1-0.8 EOSINOPHIL # (test code=EO#) 0.05 x10 3/uL 0.0-0.2 BASOPHIL # (test code=BA#) 0.02 x10 3/uL 0.0-0.2 NUCLEATED RBC # (test code=NRBC#) 0.00 x10 3/uL 0.0-0.1 MANUAL DIFF REQUIRED (test code=MDIFF) NO
--- OUTSIDE RECORDS SUMMARY | 2019-11-17 09:30 | XMS REPORT | Summary of Care ---
Author Author [facility] - Health Organization [facility] - Health Address Unknown Phone Unavailable Care Team Providers Care Environmental Health Technician Name Role Phone Pcp, Patient Does Not Have A PCP Encounter Details Care Team Description Date Type Department Doctor Unassigned, [place] [address] [place] [address] 05/21/2019 Orders Only [facility] [address] [place] [address] Allergies No Known Allergiesdocumented as of this encounter (statuses as of 05/21/2019) Medications End Date Status Medication Sig Dispensed [...] as of this encounter (statuses as of 05/21/2019) Active Problems No known active problemsdocumented as of this encounter (statuses as of 05/21/2019) Social History Date Tobacco Use Types Packs/Day [...] - Tdap) PAP SMEAR 2011 INFLUENZA VACCINE (#1) 2019 PNEUMOCOCCAL 0-64 YEARS Aged Out No longer eligible based COMBINED SERIES on patient's age to complete this topic documented as of this encounter Procedures Comments Procedure Name Priority Date/Time Associated Diagnosis ASSIGNMENT OF BENEFITS Routine 05/21/2019 2:27 PM CDT documented in this encounter Results Not on filedocumented in this encounter Insurance Type Payer Benefit Subscriber ID Effective Phone Address Plan / Dates Group Medicaid HEALTHY [place] WOMEN [facility] xxxxxxxxx 2019-P [phone] [id number] [place] [address] documented as of this encounter
--- OUTSIDE RECORDS SUMMARY | 2019-11-17 09:30 | XMS REPORT | Summary of Care ---
Author Author [facility] - Health Organization [facility] - Health Address Unknown Phone Unavailable Care Team Providers Care Turkey Pinner Name Role Phone Sabrina Arauz PCP Reason for Visit * Reason Comments ANNUAL EXAM Encounter Details Care Team Description Date Type Department Tete Major, MSN [address] [place] [address] Family planning counseling (Primary Dx); Well woman exam with routine gynecological exam; Screening examination for venereal disease; Abdominal pain, generalized; Dysmenorrhea; Menorrhagia with regular cycle 05/21/2019 Office Visit [facility] [address] [place] [address] Allergies No Known Allergiesdocumented as [...] This exam may be done by a chemical treatment plant technician, family healthcare provider, nurse practitioner, nurse engine lathe operator, or specially trained nurse. Yearly breast exams [...] Guidelines for having clinical breast exams The [employer] recommends that [...] is best for you. Date Last Reviewed: 04/24/201719993378-[address] [employer] [place] [address] 7. All rights reserved. This information is [...] breast self-examination (BSE). These experts include the [employer], the U.S. Preventive Services Task Force, and the [employer]. Some experts [...] hey are not cancer. Date Last Reviewed: 04/24/201719994089-[address] [employer] [place] [address] 7. All rights reserved. This information is not intended as a substitute for pro fessional medical care. Always follow your healthcare professional's instruction s. 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 trachomatis NEGATIVE Negative [facility] [employer] N. gonorrhoeae NEGATIVE Negative [facility] [employer] [facility] Specimen Swab - CERVIX Performing Organization Address City/[facility]/Zipcode Phone Number [facility] CLIA: [id number], [address] [place], [place] [address] [employer] [facility] * PAP Smear-Liquid Based (05/21/2019 4:09 PM CDT) Specimen Swab - CERVIX Performing Organization Address City/[facility] CLIA: [id number], [address] [place], [place] [address] [facility] documented in this encounter Visit [...] Address Plan / Dates Group Medicaid HEALTHY [place] WOMEN [facility] xxxxxxxxx 2019-P [phone] [id number] [place] [address] documented as of this encounter
--- OUTSIDE RECORDS SUMMARY | 2019-11-17 09:31 | XMS REPORT | Summary of Care ---
Author Author [facility] - Health Organization [facility] - Health Address Unknown Phone Unavailable Care Team Providers Care Warehouse Hand Name Role Phone Tete Major MSN PCP Reason for Visit * Reason Comments Lab Results Encounter Details Care Team Description Date Type Department Mariola Mathis, [facility] [address] [place] [address] Lab Results 11/03/2019 Telephone [place] [address] [place] [address] Allergies No Known Allergiesdocumented as of this encounter (statuses as of 11/03/2019) Medications End Date Status Medication Sig Dispensed Refills Start Date 11/03/2019 Active fluconazole 150 mg Take 1 tablet 1 tablet 0 tabletIndications: Yeast by mouth once 0 infection now for 1 dose. documented as of this encounter (statuses as of 11/03/2019) Active Problems No known active problemsdocumented as of this encounter (statuses as of 11/03/2019) Social History Date Tobacco Use Types Packs/Day [...] filedocumented in this encounter Visit Diagnoses Diagnosis Yeast infection - Primary Other and unspecified mycoses documented in this encounter Insurance Type Payer Benefit Subscriber ID Effective Phone Address Plan / Dates Group Medicaid [place] WOMEN [facility] xxxxxxxxx 2019-P [phone] [id number] [place] [address] documented as of this encounter
--- OUTSIDE RECORDS SUMMARY | 2019-11-17 09:31 | XMS REPORT | Summary of Care ---
Author Author [facility] - Health Organization [facility] - Health Address Unknown Phone Unavailable Care Team Providers Care Taxonomist Name Role Phone Tete Major MSN PCP Reason for Visit * Reason Comments Other Encounter Details Care Team Description Date Type Department Tete Major, MSN [address] [place] [address] Family planning counseling (Primary Dx); Vaginal discharge; Exposure to STD 10/30/2019 [facility] Visit [facility] [address] [place] [address] Allergies No Known Allergiesdocumented as [...] Comments Vital Sign 100/60 10/30/2019 2:13 PM IT BUSINESS PROCESS ARCHITECT Blood Pressure 73 10/30/2019 2:13 PM IT BUSINESS PROCESS ARCHITECT Pulse 36.9 C (98.4 F) 10/30/2019 2:13 PM IT BUSINESS PROCESS ARCHITECT Temperature 20 10/30/2019 2:13 PM IT BUSINESS PROCESS ARCHITECT Respiratory Rate - - Oxygen Saturation - - Inhaled Oxygen Concentration 55.3 kg (122 lb) 10/30/2019 2:13 PM IT BUSINESS PROCESS ARCHITECT Weight 167.6 cm (5' 6") 10/30/2019 2:13 PM IT BUSINESS PROCESS ARCHITECT Height 19.69 10/30/2019 2:13 PM IT BUSINESS PROCESS ARCHITECT Body Mass Index documented in this encounter Patient Instructions * Patient Instructions* Tete Major, MSN - 10/30/2019 1:45 PM IT BUSINESS PROCESS ARCHITECT Preventing Vaginal Infection These steps can help [...] cotton crotch. Cotton keeps you cooler and sugar drier than synthetics. Don't douche unless directed [...] ovider for advice on how to start. [employer] last reviewed this educational content on 05/25/201719999941-1539 [employer] [place] [address], [place], [place] [address] 7. All rights reserved. This information is not intended as a substitute for pro fessional medical care. Always follow your healthcare professional's instruction s. 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 The [...] file Gets together: Not on file Attends congregational service: Not on file Active member of [...] 09/06/2019 PRESENT POCT PREG LOT # 09/06/2019 [id number] POCT PREG TEST DA* 09/06/201920192020-09-23 NA 09/06/2019 [...] Case Report 05/21/2019 Value:Gynecologic Cytology Case: [id number] Authorizing Provider: Tete Major MSN Collected: [id number] [facility] Received: 9 3990 First Screen: Aleah Esquivel Specimen: Liquid Based [...] more than 50% of the visit time. BUSINESS PROCESS ARCHITECT * Cindy Delgado MA - 10/30/2019 1:45 PM IT BUSINESS PROCESS ARCHITECT Patient presents for follow up after treatment for BV and PID per ER visit. Comp leted 2 courses of RX. Still has yellow and white discharge, no odor. Not sexua lly active. BUSINESS PROCESS ARCHITECT documented in this encounter Plan of Treatment Date/Time Name Type Priority Associated Diagnoses 10/30/2019 3:04 PM IT BUSINESS PROCESS ARCHITECT [facility] ONLY - VAGINAL LAB Routine Vaginal discharge PATHOGENS BY DNA PROBE 10/30/2019 3:04 PM IT BUSINESS PROCESS ARCHITECT GC & CHLAMYDIA AMPLIFIED LAB Routine Exposure to STD ASSAY 10/30/2019 3:04 PM IT BUSINESS PROCESS ARCHITECT [facility] ONLY - SYPHILIS LAB Routine Exposure to STD IGG/IGM 10/30/2019 3:04 PM IT BUSINESS PROCESS ARCHITECT HIV 1/2 AG-AB WITH REFLEX LAB Routine [...] Address Plan / Dates Group Medicaid HEALTHY [place] WOMEN [facility] xxxxxxxxx 2019-P [phone] [phone] [place] [address] documented as of this encounter
--- OUTSIDE RECORDS SUMMARY | 2019-11-17 09:31 | XMS REPORT | Summary of Care ---
Author Author [facility] - Health Organization [facility] - Health Address Unknown Phone Unavailable Care Team Providers Care Computer Scientist Name Role Phone Tete Major MSN PCP Reason for Visit * Reason Comments Lab Results Encounter Details Care Team Description Date Type Department Mariola Mathis, [facility] [address] [place] [address] Lab Results 11/03/2019 Telephone [place] [address] [place] [address] Allergies No Known Allergiesdocumented as [...] / Dates Group Medicaid [place]ALTH[place] WOMEN [facility] xxxxxxxxx 2019-P [phone] [id number] [place] [address] documented as of this encounter
[2019-11-17 18:15] VITALS: BP 105/75
[2019-11-17 18:32] LABS: WBC,FECAL (FECAL LACTOFERRIN) NEGATIVE (NEGATIVE)
--- NOTE | 2019-11-17 19:22 | Operative Report ---
DATE OF PROCEDURE: 11/17/2019 SURGEON: Wing Lopez MD PROCEDURES: EGD with biopsies and colonoscopy with polypectomy and biopsies. INDICATION FOR EGD: Upper abdominal pain. INDICATIONS FOR COLONOSCOPY: Lower abdominal pain, history of diarrhea. MEDICATIONS: The patient was done under MAC, please see anesthesiologist's note. PROCEDURE IN DETAIL: With the patient in the left lateral decubitus position, the flexible fiberoptic Olympus gastroscope was introduced into the esophagus under direct visualization without any difficulty. There was some patchy erythema noted in distal esophagus. The scope was then advanced with ease into the stomach, mucosa overlying the antrum and the body revealed some patchy erythema and low-grade to moderate edema, and biopsies were obtained and sent to stain for H. pylori. Pylorus was of normal contour and shape, was intubated with ease and the scope was advanced all the way to the second portion of the duodenum. Biopsies were obtained from the proximal second portion and duodenal bulb to rule out sprue. The scope was then withdrawn back into the stomach and retroflexed, mucosa overlying the fundus and the cardia appeared to be within normal limits. The scope was then straightened out, it was subsequently withdrawn, and the patient tolerated the procedure well. IMPRESSION: 1. Distal esophagitis, mild. 2. Gastritis, biopsied, biopsies sent to stain for Helicobacter pylori. 3. Rule out sprue. PLAN: Follow up histology. Initiate Protonix 40 mg 1 p.o. q.a.m. before meals. The patient was then turned around and after adequate lubrication of the anal canal, the flexible fiberoptic Olympus colonoscope was inserted into the rectum with ease and advanced all the way to the cecum. The ileocecal valve was intubated and the scope was advanced into the terminal ileum. Biopsies were obtained. The scope was then withdrawn back into the colon. It was then withdrawn slowly and there were some patchy mild inflammatory changes noted throughout the colon and multiple random biopsies were obtained. Approximately 5 mm polyp was noted in the proximal rectum and that was removed per hot biopsy forceps. The scope was then retroflexed into the distal rectum and small internal hemorrhoids were noted, none of which was actively bleeding. The scope was then straightened out and it was subsequently withdrawn after securing an adequate stool specimen that was sent for the appropriate stool studies. The patient tolerated the procedure well. IMPRESSION: 1. Mild patchy colitis. 2. Rectal polyp, hot biopsied. 3. Small internal hemorrhoids, none actively bleeding. PLAN: Follow up histology. Follow up stool studies. Increase Bentyl to 10 mg 1 p.o. t.i.d. Start VSL#3 one p.o. b.i.d. The patient might benefit from a followup colonoscopy in 5 years. Wing Lopez MD [facility]/MODL /[id number] cc: Wesley Sepulveda MD
[2019-11-18 11:33] LABS: C DIFFICILE TOXIN A&B AMP PROB NEGATIVE (NEGATIVE)
== END | disposition home or self-care (01) ==
LOC: OR 09:28
PROVIDERS: ATTEND Internal Medicine Gastroenterology
DX: K52.9 Noninfective gastroenteritis and colitis, unspecified (principal); K62.1 Rectal polyp; K29.70 Gastritis, unspecified, without bleeding; K20.9 Esophagitis, unspecified; K64.8 Other hemorrhoids; R53.1 Weakness
CPT/HCPCS: 43239; 45380; 45384; 81025; 83630; 83993; 87045; 87177; 87328; 87493; C9113; J2250; J2704; J3010